=== PATIENT | female | born 1950 | race Caucasian/White ===

== ENCOUNTER 2016-06-06 09:03 | Emergency (ER) | payer MEDICARE ==
[~2016-06-06] VITALS: Ht 162.6 cm; Wt 85.0 kg
[2016-06-06 09:09] VITALS: BP 107/68; PULSE 103; RESP 16; TEMP 101.5; O2SAT 98
[2016-06-06 09:15] VITALS: BP 108/52; PULSE 98; RESP 18; TEMP 101; O2SAT 96
[2016-06-06] MEDS ORDERED: SODIUM CHLOR 0.9% 1000 ML INJ 1,000 ML IV ONE ×2 (09:24)
[2016-06-06] MEDS ORDERED: SODIUM CHLOR 0.9% 1000 ML INJ 700 ML IV ONE (09:24)
[2016-06-06 09:27] VITALS: RESP 18; O2SAT 96
[2016-06-06] MEDS ORDERED: TELM1TAB2 PO (09:27)
[2016-06-06] MEDS ORDERED: AMLO10TA2 PO (09:27)
[2016-06-06] MEDS ORDERED: ACETAMINOPHEN 325 MG TAB PO ONE (09:30)
[2016-06-06] MEDS ORDERED: SIMV5TAB3 PO (09:45)
[2016-06-06 09:50] LABS: GLUCOSE,URINE NEG (NEG); KETONE, URINE NEG (NEG); NITRITE,URINE NEG (NEG)
[2016-06-06 09:52] LABS: AUTOMATED NEUTROPHIL # 5.5 TH/MM3 (1.8-7.7); BASOPHIL % 0.3 % (0.0-2.0); EOSINOPHIL % 0.6 % (0.0-4.0); HEMATOCRIT 40.7 % (35.0-46.0); HEMO FLAGS DIFF FINAL; LYMPH % 13.8 % (9.0-44.0); MEAN CELL VOLUME 86.3 FL (80.0-100.0); MEAN CORPUSCULAR HEMOGLOBIN 29.5 PG (27.0-34.0); MEAN CORPUSCULAR HGB CONC 34.2 % (32.0-36.0); MONO % 6.4 % (0.0-8.0); NEUT % 78.9 % (16.0-70.0); PLATELET COUNT 153 TH/MM3 (150-450); RED BLOOD COUNT 4.72 MIL/MM3 (4.00-5.30); RED CELL DISTRIBUTION WIDTH 12.2 % (11.6-17.2); WHITE BLOOD COUNT 6.9 TH/MM3 (4.0-11.0)
[2016-06-06 09:55] LABS: BLOOD, URINE MOD (NEG)
[2016-06-06 09:59] LABS: METHOD OF COLLECTION CATH; URINE COLOR YELLOW (YELLW/STRAW)
[2016-06-06 10:00] LABS: BACTERIA, URINE OCC /hpf; COMMENT (UR) CATH-CULTURE IND; CULTURE IF INDICATED CATH CULTURE IND; SQUAMOUS EPITHELIAL CELL URINE 0-5 /hpf (0-5)
[2016-06-06 10:05] LABS: CHLORIDE 101 MEQ/L (98-107); POTASSIUM 3.6 MEQ/L (3.5-5.1); SODIUM (NA) 136 MEQ/L (136-145)
[2016-06-06 10:09] LABS: ANION GAP 11 MEQ/L (5-15); BICARBONATE 24.2 MEQ/L (21.0-32.0)
[2016-06-06 10:10] LABS: BLOOD UREA NITROGEN 7 MG/DL (7-18)
[2016-06-06 10:12] LABS: ALT (GPT) 45 U/L (10-53); AST (GOT) 37 U/L (15-37); GLOMERULAR FILTRATION RATE 81 ML/MIN (>89)
--- NOTE | 2016-06-06 10:12 | RADHPO ---
EXAM DATE/TIME: 06/06/2016 09:50 [facility] COMPARISON: No previous studies available for comparison. INDICATIONS : Fever, chest tightness, cough, body aches. MEDICAL HISTORY : None. SURGICAL HISTORY : None. ENCOUNTER: Initial ACUITY: 4 - 6 days PAIN SCORE: 0/10 LOCATION: Bilateral chest FINDINGS: A single view of the chest demonstrates the lungs to be symmetrically aerated without evidence of mas s, infiltrate or effusion. The cardiomediastinal contours are unremarkable. Osseous structures are intact with minimal degenerative spurring of the dorsal spine probable benign bone island in the prox imal left humerus. Degenerative changes in the a.c. joints bilaterally. CONCLUSION: No acute infiltrate. Denys Huston MD on June 06, 2016 at 10:10 Board Certified Radiologist. This report was verified electronically.
[2016-06-06 10:14] LABS: TOTAL BILIRUBIN ADULT 0.8 MG/DL (0.2-1.0)
[2016-06-06 10:16] LABS: ALKALINE PHOSPHATASE 94 U/L (45-117)
--- NOTE | 2016-06-06 10:22 | PD ---
HPI Chief Complaint: Cold / Flu Symptoms Time Seen by Provider: 09:16 Travel History International Travel<30 days: No Contact w/Intl Traveler<30days: No Traveled to known affect area: No History of Present Illness HPI Patient is a 68-year-old female who presents emergency Department with complaint of flulike symptoms. For the last 3-4 days she has had generalized body aches, subjective fevers and chills and malaise. Some nausea but no vomiting until this morning when she had 2 episodes of emesis. No hematemesis. Loose stools but no diarrhea. No abdominal pain. She notes a dry nonproductive cough. She denies any urinary symptoms. No recent travel or sick contacts. [facility] Past Medical History Cardiovascular Problems: Yes (htn on meds) Diminished Hearing: No Hypertension: Yes Tetanus Vaccination: Unknown Influenza Vaccination: No ?: Not Social History Alcohol Use: Yes (RARE) Tobacco Use: No Substance Use: No Allergies-Medications (Allergen,Severity, Reaction): Coded Allergies: Levaquin (Verified Allergy, Intermediate, skin blisters, 06/06/16) Reported Meds & Prescriptions Reported Meds & Active Scripts Active Reported Simvastatin 5 Mg Tab 5 Mg PO DAILY Amlodipine (Amlodipine Besylate) 10 Mg Tab 20 Mg PO DAILY Telmisartan 80 Mg Tab 80 Mg PO DAILY Review of Systems Except as stated in HPI: all other systems reviewed are Neg Physical Exam Narrative GENERAL: Well-appearing female in no acute distress SKIN: Focused skin assessment warm/dry. HEAD: Atraumatic. Normocephalic. EYES: Pupils equal and round. No scleral icterus. No injection or drainage. ENT: No nasal bleeding or discharge. Mucous membranes dry. TMs clear. Posterior pharynx clear. NECK: Trachea midline. No JVD. Supple without nuchal rigidity CARDIOVASCULAR: Regular rate and rhythm. No murmur appreciated. RESPIRATORY: No accessory muscle use. Clear to auscultation. Breath sounds equal bilaterally. GASTROINTESTINAL: Abdomen soft, non-tender, nondistended. MUSCULOSKELETAL: Moves all extremities normally without swelling or erythema of major joints NEUROLOGICAL: Awake and alert. Motor grossly within normal limits. Normal speech. PSYCHIATRIC: Appropriate mood and affect; insight and judgment normal. Data Data Last Documented VS Vital Signs Date Time Temp Pulse Resp B/P Pulse Ox O2 Delivery O2 Flow Rate FiO2 06/06/16 09:27 18 96 Room Air 06/06/16 09:15 101.0 98 108/52 Orders Complete Blood Count With Diff (06/06/16 09:24) Comprehensive Metabolic Panel (06/06/16 09:24) Lactic Acid Sepsis Protocol (06/06/16 09:24) Lipase (06/06/16 09:24) Urinalysis - C+S If Indicated (06/06/16 09:24) Blood Culture (06/06/16 09:24) Chest, Single Ap (06/06/16 09:24) Ecg Monitoring (06/06/16 09:24) Iv Access Insert/Monitor (06/06/16 09:24) Oximetry (06/06/16 09:24) Acetaminophen (Tylenol) (06/06/16 09:30) Sodium Chlor 0.9% 1000 Ml Inj (Ns 1000 M (06/06/16 09:24) Sodium Chlor 0.9% 1000 Ml Inj (Ns 1000 M (06/06/16 09:24) Sodium Chlor 0.9% 1000 Ml Inj (Ns 1000 M (06/06/16 09:24) Urine Culture (06/06/16 09:30) Labs Laboratory Tests Test 06/06/16 06/06/16 09:30 09:35 White Blood Count 6.9 TH/MM3 Red Blood Count 4.72 MIL/MM3 Hemoglobin 13.9 GM/DL Hematocrit 40.7 % Mean Corpuscular Volume 86.3 FL Mean Corpuscular Hemoglobin 29.5 PG Mean Corpuscular Hemoglobin 34.2 % Concent Red Cell Distribution Width 12.2 % Platelet Count 153 TH/MM3 Mean Platelet Volume 8.1 FL Neutrophils (%) (Auto) 78.9 % Lymphocytes (%) (Auto) 13.8 % Monocytes (%) (Auto) 6.4 % Eosinophils (%) (Auto) 0.6 % Basophils (%) (Auto) 0.3 % Neutrophils # (Auto) 5.5 TH/MM3 Lymphocytes # (Auto) 1.0 TH/MM3 Monocytes # (Auto) 0.4 TH/MM3 Eosinophils # (Auto) 0.0 TH/MM3 Basophils # (Auto) 0.0 TH/MM3 CBC Comment DIFF FINAL Differential Comment Urine Collection Type CATH Urine Color YELLOW Urine Turbidity CLEAR Urine pH 6.0 Urine Specific [place] 1.019 Urine Protein TRACE mg/dL Urine Glucose (UA) NEG mg/dL Urine Ketones NEG mg/dL Urine Occult Blood MOD Urine Nitrite NEG Urine Bilirubin NEG Urine Leukocyte Esterase SMALL Urine RBC 10-14 /hpf Urine WBC 3-5 /hpf Urine Squamous Epithelial 0-5 /hpf Cells Urine Bacteria OCC /hpf Microscopic Urinalysis Comment CATH-CULTURE IND Urine Collection Time 09:30 Sodium Level 136 MEQ/L Potassium Level 3.6 MEQ/L Chloride Level 101 MEQ/L Carbon Dioxide Level 24.2 MEQ/L Anion Gap 11 MEQ/L Blood Urea Nitrogen 7 MG/DL Creatinine 0.72 MG/DL Estimat Glomerular Filtration 81 ML/MIN Rate Random Glucose 98 MG/DL Calcium Level 8.5 MG/DL Total Bilirubin 0.8 MG/DL Aspartate Amino Transf 37 U/L (AST/SGOT) Alanine Aminotransferase 45 U/L (ALT/SGPT) Alkaline Phosphatase 94 U/L Total Protein 7.1 GM/DL Albumin 3.4 GM/DL Lipase 80 U/L Lactic Acid Level 1.0 mmol/L MDM Medical Decision Making Medical Screen Exam Complete: Yes Emergency Medical Condition: Yes Medical Record Reviewed: Yes Differential Diagnosis 66-year-old female here with complaint of 3-4 days of flulike symptoms. Differential includes pneumonia, UTI, viral syndrome, influenza, and less likely bacteremia or intra-abdominal source pathology. Narrative Course Patient placed on monitor, IV established and blood obtained. Patient given Tylenol and IV fluids. CBC, CMP, lipase, lactic acid, urinalysis and blood cultures were obtained and notable only for trace blood and occasional bacteria in the urine. Portable chest x-ray obtained that by my read is unremarkable. Patient feels improved. We'll treat for possible UTI pending culture. Diagnosis Primary Impression: UTI (urinary tract infection) Qualified Code: N30.01 - Acute cystitis with hematuria Additional Impression: Fever Qualified Code: R50.9 - Fever, unspecified fever cause Referrals: Primary Care Physician as needed Patient Instructions: General Instructions, Urinary Tract Infection in Women ( ED) Additional Instructions: Finish antibiotics as prescribed. Tylenol, ibuprofen as needed. Return to the emergency department for the warning signs discussed. Med/Other Pt SpecificInfo: Prescription(s) given Scripts Cephalexin (Keflex)500 Mg Thv615 Mg PO Q8H 7 Days Ref 0 Prov:Eula Pina MD 06/06/16 Disposition: 01 DISCHARGE HOME Condition: Stable Eula Pina MD Jun 06, 2016 10:22
[2016-06-06 10:26] VITALS: BP 118/56; PULSE 90; RESP 16; TEMP 100.8; O2SAT 96
[2016-06-06] MEDS ORDERED: CEPH-460 PO (10:26)
[2016-09-04] MEDS ORDERED: SIMV20TA PO ×2 (10:20→11:02)
[2016-09-04] MEDS ORDERED: AMLO5TAB2 PO (10:20)
[2016-09-04] MEDS ORDERED: TELM1TAB2 PO (11:02)
[2016-09-04] MEDS ORDERED: AMLO2.5T PO (11:02)
== END 2016-06-06 11:04 | disposition home or self-care (01) ==
LOC: PHED 09:03
DX: N39.0 Urinary tract infection, site not specified (principal); I10 Essential (primary) hypertension
CPT/HCPCS: 71010; 80053; 81001; 83605; 83690; 85025; 87040; 87086; 99283; J7030

== ENCOUNTER 2016-06-09 14:54 | Emergency (ER) | payer MEDICARE ==
[~2016-06-09] VITALS: Ht 162.6 cm; Wt 85.0 kg
[~2016-06-09 14:54] MED LIST: AMLO10TA2 PO; CEPH-460 PO; SIMV5TAB3 PO; TELM1TAB2 PO
[2016-06-09 15:03] VITALS: BP 110/67; PULSE 95; RESP 18; TEMP 100.2; O2SAT 96
[2016-06-09] MEDS ORDERED: SODIUM CHLOR 0.9% 1000 ML INJ 1,000 ML IV ONE (15:30)
[2016-06-09] MEDS ORDERED: ONDANSETRON HCL 4 MG/2 ML VIAL IV PUSH ONE (15:30)
--- NOTE | 2016-06-09 15:41 | PD ---
HPI Chief Complaint: Abdominal Pain Time Seen by Provider: 15:16 Travel History International Travel<30 days: No Contact w/Intl Traveler<30days: No Traveled to known affect area: No History of Present Illness HPI 66-year-old female complains of generalized malaise and weakness, headache, abdominal cramping with nausea and diarrhea. Patient states that the symptoms started 2 weeks ago and got worse since then. Patient states that she has low- grade fever at home. Patient was seen in emergency room 3 days ago and diagnosed with UTI. Patient was given prescription for Keflex. Patient states that the symptoms got better and get worse again. Patient denies any blood or mucus in the stool. Patient denies any dysuria or frequency. Patient states that headache taking headache the back of the head and the right side the head. Patient denies any visual change. Patient stated that she has mild left- sided neck pain. Patient states that she has mild intermittent dry cough. Patient states abdominal pain is cramping pain localized to lower abdomen. Patient denies any pain radiation. On a scale of 1-10 the pain is a 5. PFSH Past Medical History Cardiovascular Problems: Yes (htn on meds) Diminished Hearing: No Hypertension: Yes Social History Alcohol Use: Yes (RARE) Tobacco Use: No Substance Use: No Allergies-Medications (Allergen,Severity, Reaction): Coded Allergies: Levaquin (Verified Allergy, Intermediate, skin blisters, 06/09/16) Reported Meds & Prescriptions Reported Meds & Active Scripts Active Keflex (Cephalexin) 500 Mg Cap 500 Mg PO Q8H 7 Days Reported Simvastatin 5 Mg Tab 5 Mg PO DAILY Amlodipine (Amlodipine Besylate) 10 Mg Tab 20 Mg PO DAILY Telmisartan 80 Mg Tab 80 Mg PO DAILY Review of Systems General / Constitutional: No: Fever Eyes: No: Visual changes HENT: Positive: Headaches Cardiovascular: No: Chest Pain or Discomfort Respiratory: Positive: Cough, No: Shortness of Breath Gastrointestinal: Positive: Nausea, Diarrhea, Abdominal Pain Genitourinary: No: Dysuria Musculoskeletal: No: Pain Skin: No Rash Neurologic: No: Weakness Psychiatric: No: Depression Endocrine: No: Polydipsia Hematologic/Lymphatic: No: Easy Bruising Physical Exam Narrative GENERAL: Well-nourished, well-developed patient. SKIN: Focused skin assessment warm/dry. HEAD: Normocephalic. EYES: No scleral icterus. No injection or drainage. NECK: Supple, trachea midline. No JVD or lymphadenopathy. No meningismus CARDIOVASCULAR: Regular rate and rhythm without murmurs, gallops, or rubs. RESPIRATORY: Breath sounds equal bilaterally. No accessory muscle use. GASTROINTESTINAL: Abdomen soft, nondistended. Patient has mild tenderness on palpation lower abdomen. No rebound tenderness. No mass. MUSCULOSKELETAL: No cyanosis, or edema. BACK: Nontender without obvious deformity. No CVA tenderness. Neurologic exam normal. Data Data Last Documented VS Vital Signs Date Time Temp Pulse Resp B/P Pulse Ox O2 Delivery O2 Flow Rate FiO2 06/09/16 17:04 95 18 137/70 97 Room Air 06/09/16 15:03 100.2 Orders Complete Blood Count With Diff (06/09/16 15:28) Comprehensive Metabolic Panel (06/09/16 15:28) Creatine Kinase (Cpk) (06/09/16 15:28) Troponin I (06/09/16 15:28) Prothrombin Time / Inr (Pt) (06/09/16:) Act Partial Throm Time (Ptt) (06/09/16 15:28) Blood Culture (06/09/16 15:28) Lipase (06/09/16 15:28) Urinalysis - C+S If Indicated (06/09/16 15:28) Chest, Single Ap (06/09/16 15:28) Ct Abd/Pel W Iv Contrast(Rout) (06/09/16 15:28) Iv Access Insert/Monitor (06/09/16 15:28) Ecg Monitoring (06/09/16 15:28) Oximetry (06/09/16 15:28) Lactic Acid (06/09/16 15:28) Sodium Chlor 0.9% 1000 Ml Inj (Ns 1000 M (06/09/16 15:30) Ondansetron Inj (Zofran Inj) (06/09/16 15:30) Influenzae A/B Antigen (06/09/16 15:34) Iohexol 350 Inj (Omnipaque 350 Inj) (06/09/16 17:04) Labs Laboratory Tests Test 06/09/16 06/09/16 15:50 16:02 Urine Color YELLOW Urine Turbidity CLEAR Urine pH 7.0 Urine Specific [place] 1.020 Urine Protein NEG mg/dL Urine Glucose (UA) NEG mg/dL Urine Ketones TRACE mg/dL Urine Occult Blood TRACE Urine Nitrite NEG Urine Bilirubin NEG Urine Leukocyte Esterase NEG Urine RBC 0-3 /hpf Urine WBC 0-2 /hpf Microscopic Urinalysis Comment CULT NOT INDICATED White Blood Count 6.0 TH/MM3 Red Blood Count 4.34 MIL/MM3 Hemoglobin 12.7 GM/DL Hematocrit 36.5 % Mean Corpuscular Volume 84.2 FL Mean Corpuscular Hemoglobin 29.2 PG Mean Corpuscular Hemoglobin 34.7 % Concent Red Cell Distribution Width 11.9 % Platelet Count 196 TH/MM3 Mean Platelet Volume 7.8 FL Neutrophils (%) (Auto) 73.8 % Lymphocytes (%) (Auto) 16.9 % Monocytes (%) (Auto) 8.0 % Eosinophils (%) (Auto) 0.8 % Basophils (%) (Auto) 0.5 % Neutrophils # (Auto) 4.5 TH/MM3 Lymphocytes # (Auto) 1.0 TH/MM3 Monocytes # (Auto) 0.5 TH/MM3 Eosinophils # (Auto) 0.0 TH/MM3 Basophils # (Auto) 0.0 TH/MM3 CBC Comment DIFF FINAL Differential Comment Prothrombin Time 11.0 SEC Prothromb Time International 1.0 RATIO Ratio Activated Partial 27.9 SEC Thromboplast Time Sodium Level 136 MEQ/L Potassium Level 3.5 MEQ/L Chloride Level 99 MEQ/L Carbon Dioxide Level 29.1 MEQ/L Anion Gap 8 MEQ/L Blood Urea Nitrogen 10 MG/DL Creatinine 0.77 MG/DL Estimat Glomerular Filtration 75 ML/MIN Rate Random Glucose 93 MG/DL Lactic Acid Level 1.0 mmol/L Calcium Level 8.4 MG/DL Total Bilirubin 0.7 MG/DL Aspartate Amino Transf 38 U/L (AST/SGOT) Alanine Aminotransferase 60 U/L (ALT/SGPT) Alkaline Phosphatase 122 U/L Total Creatine Kinase 46 U/L Troponin I LESS THAN 0.02 NG/ML Total Protein 6.9 GM/DL Albumin 3.2 GM/DL Lipase 84 U/L [facility] Medical Decision Making Medical Screen Exam Complete: Yes Emergency Medical Condition: Yes Interpretation(s) 1652 PM. Chest x-ray shows no acute process. CBC within normal limit. CMP within normal limit. Lactic acid 1.0. Calcium 8.4. AST 38. ALT 60. Alkaline phosphatase 122. Cardiac enzymes are normal. UA is negative. Influenza AB antigen negative. [address] scan abdomen pelvis shows right kidney cyst. No other acute pathology. Differential Diagnosis Differential diagnosis including viral syndrome, tension headache, cluster headache, migraine headache, encephalitis, bronchitis, pneumonia, gastritis, PUD , pancreatitis, cholecystitis, colitis, UTI, pyelonephritis, nephrolithiasis. Narrative Course 66-year-old female with general malaise and weakness, headache, abdominal pain, nausea and diarrhea. Normal saline solution 1 L IV bolus. Zofran 4 mg IV. Diagnosis Primary Impression: Viral syndrome Additional Impression: Gastroenteritis Patient Instructions: General Instructions Additional Instructions: Take medications as needed for nausea. Encourage by mouth fluids. Tylenol for aching pain. Follow-up with personal physician. Return if worse. Patient may stop taking Keflex. Med/Other Pt SpecificInfo: Prescription(s) given Scripts Ondansetron Odt (Zofran Odt)4 Mg Tab4 Mg SL Q6HR PRN (Nausea/Vomiting) #10 TAB Prov:Ankush Burgess MD 06/09/16 Disposition: 01 DISCHARGE HOME Condition: Stable Ankush Burgess MD Jun 09, 2016 15:41
[2016-06-09 16:03] LABS: BLOOD, URINE TRACE (NEG); GLUCOSE,URINE NEG (NEG); KETONE, URINE TRACE mg/dL (NEG); NITRITE,URINE NEG (NEG)
--- NOTE | 2016-06-09 16:07 | RADHPO ---
EXAM DATE/TIME: 06/09/2016 15:45 [facility] COMPARISON: CHEST SINGLE AP, June 06, 2016, 9:50. INDICATIONS : Cough, weakness and body aches. MEDICAL HISTORY : None. SURGICAL HISTORY : None. ENCOUNTER: Initial ACUITY: 1 week PAIN SCORE: 2/10 LOCATION: Bilateral chest FINDINGS: A single view of the chest demonstrates the lungs to be symmetrically aerated without evidence of mas s, infiltrate or effusion. The cardiomediastinal contours are unremarkable. Osseous structures are intact. CONCLUSION: No acute disease. Jensen Coppola MD on June 09, 2016 at 16:05 Board Certified Radiologist. This report was verified electronically.
[2016-06-09 16:09] VITALS: O2SAT 96
[2016-06-09 16:11] LABS: AUTOMATED NEUTROPHIL # 4.5 TH/MM3 (1.8-7.7); BASOPHIL % 0.5 % (0.0-2.0); EOSINOPHIL % 0.8 % (0.0-4.0); HEMATOCRIT 36.5 % (35.0-46.0); HEMO FLAGS DIFF FINAL; LYMPH % 16.9 % (9.0-44.0); MEAN CELL VOLUME 84.2 FL (80.0-100.0); MEAN CORPUSCULAR HEMOGLOBIN 29.2 PG (27.0-34.0); MEAN CORPUSCULAR HGB CONC 34.7 % (32.0-36.0); NEUT % 73.8 % (16.0-70.0); PLATELET COUNT 196 TH/MM3 (150-450); RED BLOOD COUNT 4.34 MIL/MM3 (4.00-5.30); RED CELL DISTRIBUTION WIDTH 11.9 % (11.6-17.2)
[2016-06-09 16:14] LABS: URINE COLOR YELLOW (YELLW/STRAW)
[2016-06-09 16:15] LABS: COMMENT (UR) CULT NOT INDICATED; CULTURE IF INDICATED CULT NOT INDICATED; RBC, URINE 0-3 /hpf (0-3); WBC, URINE 0-2 /hpf (0-5)
[2016-06-09 16:19] LABS: CHLORIDE 99 MEQ/L (98-107); POTASSIUM 3.5 MEQ/L (3.5-5.1); SODIUM (NA) 136 MEQ/L (136-145)
[2016-06-09 16:23] LABS: ANION GAP 8 MEQ/L (5-15); APTT (PATIENT) 27.9 SEC (24.3-30.1); BICARBONATE 29.1 MEQ/L (21.0-32.0); BLOOD UREA NITROGEN 10 MG/DL (7-18)
[2016-06-09 16:26] LABS: ALT (GPT) 60 U/L (10-53); AST (GOT) 38 U/L (15-37); GLOMERULAR FILTRATION RATE 75 ML/MIN (>89)
[2016-06-09 16:27] LABS: TOTAL BILIRUBIN ADULT 0.7 MG/DL (0.2-1.0)
[2016-06-09 16:28] LABS: ALKALINE PHOSPHATASE 122 U/L (45-117)
[2016-06-09 16:30] LABS: CREATINE KINASE 46 U/L (26-192)
[2016-06-09 17:04] VITALS: BP 137/70; PULSE 95; RESP 18; O2SAT 97
[2016-06-09] MEDS ORDERED: IOHEXOL 350 MG/ML 10 ML VIAL (for RAD DIAG) IV ONE (17:04)
--- NOTE | 2016-06-09 17:19 | RADHPO ---
EXAM DATE/TIME: 06/09/2016 16:45 [facility] COMPARISON: No previous studies available for comparison. INDICATIONS : Lower bilateral pelvic pain. IV CONTRAST: 94 cc Omnipaque 350 (iohexol) IV ORAL CONTRAST: No oral contrast ingested. RADIATION DOSE: 17.12 CTDIvol (mGy) MEDICAL HISTORY : Hypertension. SURGICAL HISTORY : None. ENCOUNTER: Initial ACUITY: 1 day PAIN SCALE: 5/10 LOCATION: chest TECHNIQUE: Volumetric scanning of the abdomen and pelvis was performed. Using automated exposure control and ad justment of the mA and/or kV according to patient size, radiation dose was kept as low as reasonably achievable to obtain optimal diagnostic quality images. FINDINGS: The limited portion of the lung bases arises clear. There is a small hiatal hernia. The appearance of the liver, spleen, pancreas and adrenal glands are normal in appearance. The exam d emonstrates a 9.5 cm simple cyst arising from the right kidney. There is a 1.6 cm cyst arising from t he left kidney. The abdominal aorta is normal in caliber. There is no retroperitoneal lymphadenopathy. The visualized loops of small and large bowel are unremarkable in appearance. There is no free fluid within the pelvis. No iliac or inguinal adenopathy is seen. The reproductive o rgans are intact. There are mild degenerative changes within the spine. CONCLUSION: 1. 9.5 cm simple cyst arising from the right kidney. 2. No definite abnormality to explain the patient's pelvic pain is identified. Giovanni Meehan MD on June 09, 2016 at 17:15 Board Certified Radiologist. This report was verified electronically.
[2016-06-09] MEDS ORDERED: ZOFR4TAB3 SL (17:41)
[2016-06-09 17:55] VITALS: BP 135/89
[2016-09-04] MEDS ORDERED: SIMV20TA PO ×2 (10:20→11:02)
[2016-09-04] MEDS ORDERED: AMLO5TAB2 PO (10:20)
[2016-09-04] MEDS ORDERED: TELM1TAB2 PO (11:02)
[2016-09-04] MEDS ORDERED: AMLO2.5T PO (11:02)
== END 2016-06-09 18:05 | disposition home or self-care (01) ==
LOC: PHED 14:54
DX: B34.9 Viral infection, unspecified (principal); K52.9 Noninfective gastroenteritis and colitis, unspecified; R51 Headache; I10 Essential (primary) hypertension; Z79.899 Other long term (current) drug therapy; Z88.5 Allergy status to narcotic agent
CPT/HCPCS: 71010; 74177; 80053; 81001; 82550; 83605; 83690; 84484; 85025; 85610; 85730; 87040; 87804; 96361; 96374; 99285; J2405; J7030; Q9967